=== PATIENT | female | born 1990 | race Caucasian/White ===

== ENCOUNTER 2017-07-02 08:44 | Emergency (ER) | payer BC, MEDICAID ==
--- NOTE | 2017-07-02 09:27 | EDM.PDOC ---
ED HPI GENERAL MEDICAL PROBLEM - General Chief Complaint: Abdominal Pain Stated Complaint: GOLF BALL SIZE SORE ON LEFT BACK AREA Time Seen by Provider: 07/02/17 09:21 Source of Information: Reports: Patient History Limitations: Reports: No Limitations - History of Present Illness INITIAL COMMENTS - FREE TEXT/NARRATIVE: pt arrived with a pain in the left lower abdoman with a definite prominence in the one area. Onset: Gradual, Other ( This has occured earlier in the month. 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: , 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 (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) Other OB/BYN History: full term still born first Psychiatric History: Reports: Anxiety, Depression Social & Family History - Tobacco Use Smoking Status *Q: Never Smoker Used Tobacco, but Quit: No Second Hand Smoke Exposure: No - Caffeine Use Caffeine Use: Reports: Coffee - Alcohol Use Days Per Week of Alcohol Use: 1 Number of Drinks Per Day: 2 Total Drinks Per Week: 2 - Recreational Drug Use Recreational Drug Use: No ED ROS GENERAL - Review of Systems Review Of Systems: See Below Constitutional: Reports: No Symptoms HEENT: Reports: No Symptoms Respiratory: Reports: No Symptoms Cardiovascular: Reports: No Symptoms Endocrine: Reports: No Symptoms GI/Abdominal: Reports: Abdominal Pain, Other (left lower quadrant with a prominece in the lower abdoman. ) : Reports: No Symptoms Musculoskeletal: Reports: No Symptoms Skin: Reports: No Symptoms ED EXAM, GI/ABD - Physical Exam Exam: See Below Text/Narrative:: pt has pain in her left lower abdoman and a prominence or possible mass on the left side. Exam Limited By: No Limitations General Appearance: Alert, Anxious, Mild Distress Eyes: Bilateral: Normal Appearance, EOMI Ears: Normal TMs Nose: Normal Inspection Throat/Mouth: Normal Inspection Head: Atraumatic Neck: Normal Inspection Respiratory/Chest: No Respiratory Distress Cardiovascular: Regular Rate, Rhythm GI/Abdominal Exam: Soft, Tender, Other (pt has definite tenderness in the left lower abdomman) (Female) Exam: Deferred Rectal (Female) Exam: Deferred Back Exam: Normal Inspection Extremities: Normal Inspection Neurological: Alert, Oriented, Normal Cognition Psychiatric: Normal Affect Course - Vital Signs Last Recorded V/S: Last Vital Signs Temp 37.0 C 07/02/17 09:05 Pulse 77 07/02/17 09:05 Resp 14 07/02/17 09:05 BP 109/72 07/02/17 09:05 Pulse Ox 99 07/02/17 09:05 - Orders/Labs/Meds Orders: Active Orders 24 hr Category Date Time Status Pelvis Non OB Comp [US] Stat Exams 07/02/17 09:57 Taken CULTURE URINE [] Stat Lab 07/02/17 11:00 Results Labs: Laboratory Tests 07/02/17 07/02/17 07/02/17 Range/Units 09:26 09:26 10:24 WBC 5.8 (4.5-11.0) K/uL RBC 4.32 (3.30-5.50) M/uL Hgb 12.9 (12.0-15.0) g/dL Hct 38.5 (36.0-48.0) % MCV 89 (80-98) fL MCH 30 (27-31) pg MCHC 34 (32-36) % Plt Count 308 (150-400) K/uL Neut % (Auto) 48 (36-66) % Lymph % (Auto) 33 (24-44) % [place] % (Auto) 12 H (2-6) % Eos % (Auto) 8 H (2-4) % Baso % (Auto) 1 (0-1) % Sodium 140 (140-148) mmol/L Potassium 3.7 (3.6-5.2) mmol/L Chloride 104 (100-108) mmol/L Carbon Dioxide 27 (21-32) mmol/L Anion Gap 9.3 (5.0-14.0) mmol/L BUN 20 H D (7-18) mg/dL Creatinine 0.8 (0.6-1.0) mg/dL Est Cr Clr Drug Dosing TNP Estimated GFR (MDRD) > 60 (>60) Glucose 100 (74-106) mg/dL Calcium 8.8 (8.5-10.1) mg/dL Total Bilirubin 0.5 (0.2-1.0) mg/dL AST 21 (15-37) U/L ALT 27 (12-78) U/L Alkaline Phosphatase 41 L (46-116) U/L Total Protein 7.2 (6.4-8.2) g/dL Albumin 3.9 (3.4-5.0) g/dL Globulin 3.3 (2.3-3.5) g/dL Albumin/Globulin Ratio 1.2 (1.2-2.2) Urine Color Yellow Urine Appearance Turbid Urine pH 9.0 H (4.5-8.0) Ur Specific [place] 1.015 (1.008-1.030) Urine Protein Negative (NEGATIVE) mg/dL Urine Glucose (UA) Normal (NEGATIVE) mg/dL Urine Ketones Negative (NEGATIVE) mg/dL Urine Occult Blood Negative (NEGATIVE) Urine Nitrite Negative (NEGATIVE) Urine Bilirubin Negative (NEGATIVE) Urine Urobilinogen Normal (NORMAL) mg/dL Ur Leukocyte Esterase Negative (NEGATIVE) Urine RBC 0-5 (0-5) Urine WBC 0-5 (0-5) Ur Epithelial Cells Rare Amorphous Sediment Packed Urine Bacteria Moderate Urine Mucus Not seen - Re-Assessments/Exams Free Text/Narrative Re-Assessment/Exam: 07/02/17 10:11 lab work looked normal. Her US did reveal a 1.5 cm cyst on the left side. There is no free fluid present. 07/02/17 10:27 pt was repalpated and she is very tender over the ligaments attatced to the ileum. I do not a definite mass or hernia when she coughes. She does do alot of lifiting and coiuld have pulled a muscle or ligament. Departure - Departure Time of Disposition: 10:34 Disposition: Home, Self-Care 01 Condition: Fair Clinical Impression: Abdominal wall pain, Ovarian cyst - Discharge Information Instructions: Ovarian Cyst, [id number] Referrals: PCP,None [Primary Care Provider] - Forms: ED Department Discharge Care Plan Goals: rtc if pain gets worse, avoid real heavy lifting when possible, heat to area, motrin 600mg tid for 1 week to see if there is improvement, cont to observe if the pain is worse during period time. - My Orders Last 24 Hours: My Active Orders 07/02/17 09:57 Pelvis Non OB Comp [US] Stat 07/02/17 11:00 CULTURE URINE [RM] Stat - Assessment/Plan Last 24 Hours: My Active Orders 07/02/17 09:57 Pelvis Non OB Comp [US] Stat 07/02/17 11:00 CULTURE URINE [RM] Stat
[2017-07-02 10:07] VITALS: BP 109/72
== END 2017-07-02 10:59 | disposition home or self-care (01) ==
LOC: JP.ED 08:44
DX: N83.202 Unspecified ovarian cyst, left side (principal); R10.32 Left lower quadrant pain; Z91.09 Other allergy status, other than to drugs and biological substances; Z88.8 Allergy status to other drugs, medicaments and biological substances; Z79.899 Other long term (current) drug therapy
CPT/HCPCS: 36415; 76856; 80053; 81001; 85025; 87086; 99284-25

== ENCOUNTER 2018-03-23 14:11 | Inpatient (IN) | payer MEDICAID ==
[2018-03-23] MEDS ORDERED: Sodium Chloride 0.9% 1,000 ML IV ONE (16:17)
[2018-03-23] MEDS ORDERED: Sodium Chloride 0.9% 10 ML Syringe FLUSH PRN (16:42)
[2018-03-23] MEDS ORDERED: Lactated Ringers 1,000 ML IV SCH (16:45)
[2018-03-23] MEDS ORDERED: Docusate Sodium 100 MG Cap PO PRN (19:38)
[2018-03-23] MEDS ORDERED: Ondansetron 4 MG/2 ML SDV IV PRN (19:38)
[2018-03-23] MEDS ORDERED: Acetaminophen 325 MG Tab PO PRN (19:38)
[2018-03-23] MEDS ORDERED: cefTRIAXone 1 GM in Sodium Chloride 0.9% 50 ML IV SCH (20:00)
[2018-03-23] MEDS: Sodium Chloride 0.9% 1,000 ML IV SCH (20:00)
[2018-03-23] MEDS ORDERED: Morphine 2 MG/ML Syringe IVPUSH PRN (20:08)
[2018-03-23] MEDS ORDERED: Calcium Carbonate 500 MG Tab.Chew PO PRN (20:10)
[2018-03-23] MEDS ORDERED: hydrOXYzine HCl 25 MG Tab PO SCH (21:00)
[2018-03-24] MEDS: Sodium Chloride 0.9% 1,000 ML IV SCH ×2 (03:14→16:03)
--- NOTE | 2018-03-24 08:55 | US ---
Ultrasound Abdomen Ltd CLINICAL HISTORY: Right hydronephrosis, COMPARISON: Earlier 03/24/2018. FINDINGS: The right kidney is moderately hydronephrotic. This is similar if not slightly less than th e earlier study. Right ureter is not visualized. IMPRESSION: Persistent moderate right-sided hydronephrosis. There may be a slight the decrease from e arlier exam
[2018-03-24 16:01] VITALS: BP 94/50
--- NOTE | 2018-03-24 17:00 | PCM.LDHP ---
L&D History of Present Illness - General Date of Service: 03/23/18 (Hydronephrosis) Admit Problem/Dx: Patient Status Order with Admit Dx/Problem 03/23/18 19:38 Patient Status [ADT] Routine Admission Diagnosis/Problem Admission Diagnosis/Problem Hydronephrosis of right kidney Source of Information: Patient History Limitations: Reports: No Limitations - History of Present Illness Location, : Reports: Flank Quality: Reports: Sharp, Stabbing Severity: Severe - Related Data Allergies/Adverse Reactions: Allergies Allergy/AdvReac Type Severity Reaction Status Date / Time adhesive Allergy Rash Verified 09/06/14 01:33 buspirone [From BuSpar] Allergy Hives Verified 07/02/17 08:54 Home Medications: Home Meds clonazePAM [Clonazepam] 0.5 mg PO ASDIRECTED 06/28/16 [History] FLUoxetine [PROzac] 3 tab PO DAILY 07/02/17 [History] Vit W-Ca,Fe,FA(<1 mg) [ Vitamins] 1 tab PO DAILY 03/23/18 [ History] metroNIDAZOLE [Metronidazole] 500 mg PO BID 03/23/18 [History] Past Medical History - Past Health History Medical/Surgical History: Denies Medical/Surgical History HEENT History: Reports: Impaired Vision Other HEENT History: glasses 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: , 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 (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) Other OB/BYN History: full term still born first Psychiatric History: Reports: Anxiety, Depression - Infectious Disease History Infectious Disease History: Reports: Chicken Pox - Past Surgical History HEENT Surgical History: Reports: None Social & Family History - Tobacco Use Smoking Status *Q: Never Smoker - Caffeine Use Caffeine Use: Reports: None - Recreational Drug Use Recreational Drug Use: No H&P Review of Systems - Review of Systems: Review Of Systems: See Below General: Reports: No Symptoms HEENT: Reports: No Symptoms Pulmonary: Reports: No Symptoms Cardiovascular: Reports: No Symptoms Gastrointestinal: Reports: Constipation, Nausea Genitourinary: Reports: Flank Pain Musculoskeletal: Reports: No Symptoms Skin: Reports: No Symptoms Psychiatric: Reports: No Symptoms Neurological: Reports: No Symptoms Hematologic/Lymphatic: Reports: No Symptoms Immunologic: Reports: No Symptoms L&D Exam - Exam Exam: See Below - Vital Signs Vital Signs: Last Vital Signs Temp 37.1 C 07/13/18 15:59 Pulse 84 03/24/18 15:59 Resp 16 03/24/18 15:59 BP 94/50 L 03/24/18 15:59 Pulse Ox 99 03/24/18 15:59 Weight: 59.693 kg - OB Specific Contraction Frequency (min): 0 Movement: Active Heart Tones: Present Heart Rate (FHR) Variability: Moderate (6-25 bmp) - Exam General: Alert, Oriented HEENT: PERRLA, Conjunctiva Clear, EACs Clear, EOMI, Hearing Intact, Mucosa Moist & [place], Nares Patent, Normal Nasal Septum, Posterior Pharynx Clear, Pupils Equal, Pupils Reactive, TMs Clear Neck: Supple, Trachea Midline Lungs: Clear to Auscultation, Normal Respiratory Effort Cardiovascular: Regular Rate, Regular Rhythm GI/Abdominal Exam: Normal Bowel Sounds, Soft, Non-Tender, No Organomegaly, No Distention, No Abnormal Bruit, No Mass, Pelvis Stable Rectal Exam: Normal Exam, Normal Rectal Tone Genitourinary: Normal external exam Back Exam: Full Range of Motion, CVA Tenderness (R) Extremities: Normal Inspection, Normal Range of Motion, Non-Tender, No Pedal Edema, Normal Capillary Refill Skin: Warm, Dry, Intact Neurological: Cranial Nerves Intact, Reflexes Equal Bilateral Psychiatric: Alert, Normal Affect, Normal Mood - Patient Data Lab Results Last 24 hrs: Laboratory Results - last 24 hr 03/23/18 03/23/18 03/24/18 Range/Units 17:09 19:48 11:55 WBC 6.2 (4.5-11.0) K/uL RBC 3.15 L (3.30-5.50) M/uL Hgb 9.7 L (12.0-15.0) g/dL Hct 29.4 L (36.0-48.0) % MCV 93 (80-98) fL MCH 31 (27-31) pg MCHC 33 (32-36) % Plt Count 186 (150-400) K/uL Neut % (Auto) 72 H (36-66) % Lymph % (Auto) 18 L (24-44) % [place] % (Auto) 9 H (2-6) % Eos % (Auto) 1 L (2-4) % Baso % (Auto) 0 (0-1) % Sodium 135 L (140-148) mmol/L Potassium 3.6 (3.6-5.2) mmol/L Chloride 104 (100-108) mmol/L Carbon Dioxide 24 (21-32) mmol/L Anion Gap 10.6 (5.0-14.0) mmol/L BUN 10 (7-18) mg/dL Creatinine 0.6 (0.6-1.0) mg/dL Est Cr Clr Drug Dosing 133.01 mL/min Estimated GFR (MDRD) > 60 (>60) Glucose 75 (74-106) mg/dL Calcium 8.3 L (8.5-10.1) mg/dL Urine Color Yellow Urine Appearance Clear Urine pH 8.0 (4.5-8.0) Ur Specific [place] 1.015 (1.008-1.030) Urine Protein Negative (NEGATIVE) mg/dL Urine Glucose (UA) Normal (NEGATIVE) mg/dL Urine Ketones Negative (NEGATIVE) mg/dL Urine Occult Blood Negative (NEGATIVE) Urine Nitrite Negative (NEGATIVE) Urine Bilirubin Negative (NEGATIVE) Urine Urobilinogen Normal (NORMAL) mg/dL Ur Leukocyte Esterase Negative (NEGATIVE) Urine RBC 0-5 (0-5) Urine WBC 0-5 (0-5) Ur Epithelial Cells Few Amorphous Sediment Few Urine Bacteria Not seen Urine Mucus Rare 03/24/18 Range/Units 11:55 WBC (4.5-11.0) K/uL RBC (3.30-5.50) M/uL Hgb (12.0-15.0) g/dL Hct (36.0-48.0) % MCV (80-98) fL MCH (27-31) pg MCHC (32-36) % Plt Count (150-400) K/uL Neut % (Auto) (36-66) % Lymph % (Auto) (24-44) % [place] % (Auto) (2-6) % Eos % (Auto) (2-4) % Baso % (Auto) (0-1) % Sodium 139 L (140-148) mmol/L Potassium 3.4 L (3.6-5.2) mmol/L Chloride 105 (100-108) mmol/L Carbon Dioxide 24 (21-32) mmol/L Anion Gap 13.4 (5.0-14.0) mmol/L BUN 9 (7-18) mg/dL Creatinine 0.5 L (0.6-1.0) mg/dL Est Cr Clr Drug Dosing 159.62 mL/min Estimated GFR (MDRD) > 60 (>60) Glucose 83 (74-106) mg/dL Calcium 7.8 L (8.5-10.1) mg/dL Urine Color Urine Appearance Urine pH (4.5-8.0) Ur Specific [place] (1.008-1.030) Urine Protein (NEGATIVE) mg/dL Urine Glucose (UA) (NEGATIVE) mg/dL Urine Ketones (NEGATIVE) mg/dL Urine Occult Blood (NEGATIVE) Urine Nitrite (NEGATIVE) Urine Bilirubin (NEGATIVE) Urine Urobilinogen (NORMAL) mg/dL Ur Leukocyte Esterase (NEGATIVE) Urine RBC (0-5) Urine WBC (0-5) Ur Epithelial Cells Amorphous Sediment Urine Bacteria Urine Mucus Result Diagrams: 03/24/18 11:55 03/24/18 11:55 - Problem List (1) Hydronephrosis SNOMED Code(s): 49163537 ICD Code: N13.30 - UNSPECIFIED HYDRONEPHROSIS Status: Acute Current Visit : Yes Qualifiers: Hydronephrosis type: unspecified Qualified Code(s): N13.30 - Unspecified hydronephrosis (2) SNOMED Code(s): 63375450 ICD Code: Z34.90 - ENCNTR FOR SUPRVSN OF NORMAL , UNSP, UNSP TRIMESTER Status: Acute Current Visit: Yes Qualifiers: Weeks of gestation: 27 weeks Qualified Code(s): Z3A.27 - 27 weeks gestation of (3) Nausea SNOMED Code(s): 968410839 ICD Code: R11.0 - NAUSEA Status: Acute Current Visit: Yes (4) History of stillbirth SNOMED Code(s): 189357448 ICD Code: Z87.59 - PERSONAL HISTORY OF COMP OF PREG, CHLDBRTH AND THE PUERP Status: Acute Current Visit: Yes (5) Anxiety SNOMED Code(s): 55576344 ICD Code: F41.9 - ANXIETY DISORDER, UNSPECIFIED Status: Acute Current Visit: Yes (6) Umbilical cord, marginal insertion SNOMED Code(s): 63830229 ICD Code: BPY0306 - Status: Acute Current Visit: Yes Problem List Initiated/Reviewed/Updated: Yes Orders Last 24hrs: Active Orders 24 hr Category Date Time Status Patient Status [ADT] Routine ADT 03/23/18 19:38 Active Ambulate [RC] PER UNIT ROUTINE Care 03/23/18 19:38 Active Heart Tones [RC] INTERMITTENT Care 03/23/18 19:41 Active Intake and Output [RC] QSHIFT Care 03/23/18 19:38 Active May Shower [RC] ASDIRECTED Care 03/23/18 19:38 Active Notify Provider [RC] PRN Care 03/23/18 19:38 Active Peripheral IV Care [RC] . DIRECTED Care 03/23/18 16:42 Active Strain Urine [RC] ASDIRECTED Care 03/23/18 20:06 Active Up ad [place] [RC] ASDIRECTED Care 03/23/18 19:38 Active VTE/DVT Education [RC] Click to Edit Care 03/23/18 19:44 Active Vital Signs [RC] Q4HR Care 03/23/18 19:38 Active UA W/MICROSCOPIC [URIN] Routine Lab 03/23/18 17:09 Ordered UA W/MICROSCOPIC [URIN] Routine Lab 03/24/18 12:00 Ordered Acetaminophen [Tylenol] Med 03/23/18 19:38 Active 650 mg PO Q4H PRN Calcium Carbonate [Tums] Med 03/23/18 20:10 Active 1,000 mg PO Q2H PRN Docusate Sodium [Colace] Med 03/23/18 19:38 Active 100 mg PO Q12H PRN Morphine Med 03/23/18 20:08 Active 2 mg IVPUSH Q4H PRN Ondansetron [Zofran] Med 03/23/18 19:38 Active 4 mg IV Q4H PRN Sodium Chloride 0.9% [Normal Saline] 1,000 ml Med 03/23/18 20:15 Active IV ASDIRECTED Sodium Chloride 0.9% [Saline Flush] Med 03/23/18 16:42 Active 10 ml FLUSH ASDIRECTED PRN cefTRIAXone [Rocephin] 1 gm Med 03/23/18 20:00 Active Sodium Chloride 0.9% [Normal Saline] 50 ml IV Q24H hydrOXYzine HCl [Atarax] Med 03/23/18 21:00 Active 25 - 50 mg PO BEDTIME DVT/VTE Prophylaxis Reflex [OM.PC] Routine Oth 07/12/18 19:38 Ordered Peripheral IV Insertion Adult [OM.PC] Routine Oth 03/23/18 16:42 Ordered Resuscitation Status Routine Resus Stat 03/23/18 19:38 Ordered Medication Orders Acetaminophen (Tylenol) 650 mg PO Q4H PRN PRN Reason: mild pain and fever Calcium Carbonate/Glycine (Tums) 1,000 mg PO Q2H PRN PRN Reason: Indigestion Docusate Sodium (Colace) 100 mg PO Q12H PRN PRN Reason: Constipation Last Admin: 03/24/18 03:14 Dose: 100 mg Hydroxyzine HCl (Atarax) 25 - 50 mg PO BEDTIME JAQUAN Last Admin: 03/23/18 21:02 Dose: 25 mg Sodium Chloride (Normal Saline) 1,000 mls @ 150 mls/hr IV ASDIRECTED [facility] Last Admin: 03/24/18 16:03 Dose: 150 mls/hr Infusion: 03/24/18 09:55 Dose: 150 mls/hr Admin: 03/24/18 03:14 Dose: 150 mls/hr Infusion: 03/24/18 02:41 Dose: 150 mls/hr Admin: 03/23/18 20:00 Dose: 150 mls/hr Ceftriaxone Sodium 1 gm/ (Sodium Chloride) 50 mls @ 100 mls/hr IV Q24H [facility] Last Admin: 03/23/18 21:00 Dose: 100 mls/hr Morphine Sulfate (Morphine) 2 mg IVPUSH Q4H PRN PRN Reason: Pain Ondansetron HCl (Zofran) 4 mg IV Q4H PRN PRN Reason: Nausea/Vomiting Sodium Chloride (Saline Flush) 10 ml FLUSH ASDIRECTED PRN PRN Reason: Keep Vein Open Assessment/Plan Comment:: 03/23/2018 27 yo here at 27 5/7 gestational weeks with right hydronephrosis Patient had been seen in the ER in [place] earlier in day and was discharged home Patient states on the way home the pain got worse and she came here US completed and showed severe hydronephrois Dr. Godwin notified and plan of care discussed No contractions noted FHTs category one for gestational age Plan- Monitor FHTS IV fluids NS @ 150ml/hour CBC, BMP, Creatinine, BUN, and UA to be completed Morphine 2mg every four hours as needed for pain Tylenol 650mg as needed for fever Zofran 4mg as needed for nausea Vistaril 25-50mg at HS to sleep Strain all urine Rocephin every 24hrs IV Repeat US tomorrow at noon for change Repeat all labs tomorrow for change Plan discharge 24-72 hours
--- NOTE | 2018-03-24 17:04 | PCM.PN ---
- General Info Date of Service: 03/24/18 Admission Dx/Problem (Free Text): Patient Status Order with Admit Dx/Problem 03/23/18 19:38 Patient Status [ADT] Routine Admission Diagnosis/Problem Admission Diagnosis/Problem Hydronephrosis of right kidney Functional Status: Reports: Pain Controlled - Review of Systems General: Reports: No Symptoms HEENT: Reports: No Symptoms Pulmonary: Reports: No Symptoms Cardiovascular: Reports: No Symptoms Gastrointestinal: Reports: Nausea Genitourinary: Reports: Flank Pain Musculoskeletal: Reports: No Symptoms Skin: Reports: No Symptoms Neurological: Reports: No Symptoms Psychiatric: Reports: No Symptoms - Patient Data Vitals - Most Recent: Last Vital Signs Temp 37.1 C 03/24/18 15:59 Pulse 84 03/24/18 15:59 Resp 16 03/24/18 15:59 BP 94/50 L 03/24/18 15:59 Pulse Ox 99 03/24/18 15:59 Weight - Most Recent: 59.693 kg I&O - Last 24 Hours: Intake & Output 03/24/18 03/24/18 03/24/18 06:59 14:59 22:59 Output Total 2684 823 3612 Balance -1000 -400 -2750 Lab Results Last 24 Hours: Laboratory Results - last 24 hr 03/23/18 03/23/18 03/24/18 Range/Units 17:09 19:48 11:55 WBC 6.2 (4.5-11.0) K/uL RBC 3.15 L (3.30-5.50) M/uL Hgb 9.7 L (12.0-15.0) g/dL Hct 29.4 L (36.0-48.0) % MCV 93 (80-98) fL MCH 31 (27-31) pg MCHC 33 (32-36) % Plt Count 186 (150-400) K/uL Neut % (Auto) 72 H (36-66) % Lymph % (Auto) 18 L (24-44) % [place] % (Auto) 9 H (2-6) % Eos % (Auto) 1 L (2-4) % Baso % (Auto) 0 (0-1) % Sodium 135 L (140-148) mmol/L Potassium 3.6 (3.6-5.2) mmol/L Chloride 104 (100-108) mmol/L Carbon Dioxide 24 (21-32) mmol/L Anion Gap 10.6 (5.0-14.0) mmol/L BUN 10 (7-18) mg/dL Creatinine 0.6 (0.6-1.0) mg/dL Est Cr Clr Drug Dosing 133.01 mL/min Estimated GFR (MDRD) > 60 (>60) Glucose 75 (74-106) mg/dL Calcium 8.3 L (8.5-10.1) mg/dL Urine Color Yellow Urine Appearance Clear Urine pH 8.0 (4.5-8.0) Ur Specific [place] 1.015 (1.008-1.030) Urine Protein Negative (NEGATIVE) mg/dL Urine Glucose (UA) Normal (NEGATIVE) mg/dL Urine Ketones Negative (NEGATIVE) mg/dL Urine Occult Blood Negative (NEGATIVE) Urine Nitrite Negative (NEGATIVE) Urine Bilirubin Negative (NEGATIVE) Urine Urobilinogen Normal (NORMAL) mg/dL Ur Leukocyte Esterase Negative (NEGATIVE) Urine RBC 0-5 (0-5) Urine WBC 0-5 (0-5) Ur Epithelial Cells Few Amorphous Sediment Few Urine Bacteria Not seen Urine Mucus Rare 03/24/18 Range/Units 11:55 WBC (4.5-11.0) K/uL RBC (3.30-5.50) M/uL Hgb (12.0-15.0) g/dL Hct (36.0-48.0) % MCV (80-98) fL MCH (27-31) pg MCHC (32-36) % Plt Count (150-400) K/uL Neut % (Auto) (36-66) % Lymph % (Auto) (24-44) % Clarke % (Auto) (2-6) % Eos % (Auto) (2-4) % Baso % (Auto) (0-1) % Sodium 139 L (140-148) mmol/L Potassium 3.4 L (3.6-5.2) mmol/L Chloride 105 (100-108) mmol/L Carbon Dioxide 24 (21-32) mmol/L Anion Gap 13.4 (5.0-14.0) mmol/L BUN 9 (7-18) mg/dL Creatinine 0.5 L (0.6-1.0) mg/dL Est Cr Clr Drug Dosing 159.62 mL/min Estimated GFR (MDRD) > 60 (>60) Glucose 83 (74-106) mg/dL Calcium 7.8 L (8.5-10.1) mg/dL Urine Color Urine Appearance Urine pH (4.5-8.0) Ur Specific [place] (1.008-1.030) Urine Protein (NEGATIVE) mg/dL Urine Glucose (UA) (NEGATIVE) mg/dL Urine Ketones (NEGATIVE) mg/dL Urine Occult Blood (NEGATIVE) Urine Nitrite (NEGATIVE) Urine Bilirubin (NEGATIVE) Urine Urobilinogen (NORMAL) mg/dL Ur Leukocyte Esterase (NEGATIVE) Urine RBC (0-5) Urine WBC (0-5) Ur Epithelial Cells Amorphous Sediment Urine Bacteria Urine Mucus Med Orders - Current: Current Medications Acetaminophen (Tylenol) 650 mg PO Q4H PRN PRN Reason: mild pain and fever Calcium Carbonate/Glycine (Tums) 1,000 mg PO Q2H PRN PRN Reason: Indigestion Docusate Sodium (Colace) 100 mg PO Q12H PRN PRN Reason: Constipation Last Admin: 03/24/18 03:14 Dose: 100 mg Hydroxyzine HCl (Atarax) 25 - 50 mg PO BEDTIME [facility] Last Admin: 03/23/18 21:02 Dose: 25 mg Sodium Chloride (Normal Saline) 1,000 mls @ 150 mls/hr IV ASDIRECTED [facility] Last Admin: 03/24/18 16:03 Dose: 150 mls/hr Ceftriaxone Sodium 1 gm/ (Sodium Chloride) 50 mls @ 100 mls/hr IV Q24H [facility] Last Admin: 03/23/18 21:00 Dose: 100 mls/hr Morphine Sulfate (Morphine) 2 mg IVPUSH Q4H PRN PRN Reason: Pain Ondansetron HCl (Zofran) 4 mg IV Q4H PRN PRN Reason: Nausea/Vomiting Sodium Chloride (Saline Flush) 10 ml FLUSH ASDIRECTED PRN PRN Reason: Keep Vein Open Discontinued Medications Sodium Chloride (Normal Saline) 1,000 mls @ 999 mls/hr IV .BOLUS ONE Stop: 03/23/18 17:17 Last Admin: 03/23/18 17:10 Dose: Not Given Lactated Ringer's (Ringers, Lactated) 1,000 mls @ 500 mls/hr IV BOLUS [facility] Last Admin: 03/23/18 16:45 Dose: 500 mls/hr - Exam General: Alert, Oriented HEENT: Pupils Equal, Pupils Reactive, EOMI, Mucous Membr. Moist/[place] Neck: Supple Lungs: Clear to Auscultation, Normal Respiratory Effort Cardiovascular: Regular Rate, Regular Rhythm, No Murmurs GI/Abdominal Exam: Normal Bowel Sounds, Soft, Non-Tender, No Organomegaly, No Distention, No Abnormal Bruit, No Mass, Pelvis Stable (Female) Exam: Normal External Exam, Other (gravid uterus) Back Exam: Normal Inspection, Full Range of Motion Extremities: Normal Inspection, Normal Range of Motion, Non-Tender, No Pedal Edema, Normal Capillary Refill Skin: Warm, Dry, Intact Wound/Incisions: Healing Well Neurological: No New Focal Deficit Psy/Mental Status: Alert, Normal Affect, Normal Mood - Problem List & Annotations (1) Hydronephrosis SNOMED Code(s): 51575089 Code(s): N13.30 - UNSPECIFIED HYDRONEPHROSIS Status: Acute Current Visit : Yes Qualifiers: Hydronephrosis type: unspecified Qualified Code(s): N13.30 - Unspecified hydronephrosis (2) SNOMED Code(s): 28299438 Code(s): Z34.90 - ENCNTR FOR SUPRVSN OF NORMAL , UNSP, UNSP TRIMESTER Status: Acute Current Visit: Yes Qualifiers: Weeks of gestation: 27 weeks Qualified Code(s): Z3A.27 - 27 weeks gestation of (3) Nausea SNOMED Code(s): 090856453 Code(s): R11.0 - NAUSEA Status: Acute Current Visit: Yes (4) History of stillbirth SNOMED Code(s): 385145789 Code(s): Z87.59 - PERSONAL HISTORY OF COMP OF PREG, CHLDBRTH AND THE PUERP Status: Acute Current Visit: Yes (5) Anxiety SNOMED Code(s): 43856862 Code(s): F41.9 - ANXIETY DISORDER, UNSPECIFIED Status: Acute Current Visit: Yes (6) Umbilical cord, marginal insertion SNOMED Code(s): 99321669 Code(s): IMD7349 - Status: Acute Current Visit: Yes - Problem List Review Problem List Initiated/Reviewed/Updated: Yes - My Orders Last 24 Hours: My Active Orders 03/23/18 16:42 Peripheral IV Care [RC] . DIRECTED Sodium Chloride 0.9% [Saline Flush] 10 ml FLUSH ASDIRECTED PRN Peripheral IV Insertion Adult [OM.PC] Routine 03/23/18 17:09 UA W/MICROSCOPIC [URIN] Routine 03/23/18 19:38 Patient Status [ADT] Routine Ambulate [RC] PER UNIT ROUTINE Intake and Output [RC] QSHIFT May Shower [RC] ASDIRECTED Notify Provider [RC] PRN Up ad [place] [RC] ASDIRECTED Vital Signs [RC] Q4HR Acetaminophen [Tylenol] 650 mg PO Q4H PRN Docusate Sodium [Colace] 100 mg PO Q12H PRN Ondansetron [Zofran] 4 mg IV Q4H PRN DVT/VTE Prophylaxis Reflex [OM.PC] Routine Resuscitation Status Routine 03/23/18 19:41 Heart Tones [RC] INTERMITTENT 03/23/18 19:44 VTE/DVT Education [RC] Click to Edit 03/23/18 20:00 [email or web address] [Rocephin] 1 gm Sodium Chloride 0.9% [Normal Saline] 50 ml IV Q24H 03/23/18 20:06 Strain Urine [RC] ASDIRECTED 03/23/18 20:08 Morphine 2 mg IVPUSH Q4H PRN 03/23/18 20:10 Calcium Carbonate [Tums] 1,000 mg PO Q2H PRN 03/23/18 20:15 Sodium Chloride 0.9% [Normal Saline] 1,000 ml IV ASDIRECTED 03/23/18 21:00 hydrOXYzine HCl [Atarax] 25 - 50 mg PO BEDTIME 03/24/18 12:00 UA W/MICROSCOPIC [URIN] Routine - Assessment Assessment:: 03/24/2018 Right hydronephrosis [id number] 6/7 gestational weeks Voiding and stooling Pain better today - Plan Plan:: 03/23/2018 27 yo here at 27 5/7 gestational weeks with right hydronephrosis Patient had been seen in the ER in [place] earlier in day and was discharged home Patient states on the way home the pain got worse and she came here US completed and showed severe hydronephrois Dr. Godwin notified and plan of care discussed No contractions noted FHTs category one for gestational age Plan- Monitor FHTS IV fluids NS @ 150ml/hour CBC, BMP, Creatinine, BUN, and UA to be completed Morphine 2mg every four hours as needed for pain Tylenol 650mg as needed for fever Zofran 4mg as needed for nausea Vistaril 25-50mg at HS to sleep Strain all urine Rocephin every 24hrs IV Repeat US tomorrow at noon for change Repeat all labs tomorrow for change Plan discharge 24-72 hours 45 minutes spent with patient-more than 50% of time spent on patient care, patient education, and collaboration of care. Plan- Continue IV fluids Repeat US Repeat labs Continue to strain urine May discharge home later today
== END 2018-03-24 18:05 | disposition home or self-care (01) | DRG 781 ==
LOC: JP.OBCHECK 14:11 → JP.MS 19:38
PROVIDERS: ADMIT Advanced Practice Midwife; ATTEND Advanced Practice Midwife
DX: O99.89 Other specified diseases and conditions complicating pregnancy, childbirth and the puerperium (principal); N13.30 Unspecified hydronephrosis; O69.89X0 Labor and delivery complicated by other cord complications, not applicable or unspecified; O99.342 Other mental disorders complicating pregnancy, second trimester; F41.9 Anxiety disorder, unspecified; R11.0 Nausea; Z3A.27 27 weeks gestation of pregnancy; Z87.59 Personal history of other complications of pregnancy, childbirth and the puerperium
CPT/HCPCS: 36415; 76705; 76705-26; 76815; 80048; 81001; 85025; 99211; A9270-GY; J0696; J7030; J7050; J7120

== ENCOUNTER 2018-11-07 15:59 | Emergency (ER) | payer MEDICAID ==
[2018-11-07 16:30] VITALS: BP 117/67
--- NOTE | 2018-11-07 17:00 | EDM.PDOC ---
ED HPI GENERAL MEDICAL PROBLEM - General Chief Complaint: Cardiovascular Problem Stated Complaint: HEART ISSUES Time Seen by Provider: 11/07/18 16:35 Source of Information: Reports: Patient History Limitations: Reports: No Limitations - History of Present Illness INITIAL COMMENTS - FREE TEXT/NARRATIVE: 28-year-old female who is feeling her heart skip beats on an occasional basis. She's been feeling this since July, she had another episode today and it scared her so she came in to be checked. She just had a complete physical including thyroid check and everything was fine. She has no chest pain or shortness of breath except for very briefly when the missed beat occurs she feels a tightness and shortness of breath for just a second or 2 and it's gone. Onset: Unknown/Unsure (She thinks the first one she felt was 3-4 months ago) - Related Data Allergies Allergy/AdvReac Type Severity Reaction Status Date / Time adhesive Allergy Rash Verified 09/06/14 01:33 buspirone [From BuSpar] Allergy Hives Verified 07/02/17 08:54 Home Meds: Home Meds Vit Calc,Iron,Folic [ Vitamins] 1 tab PO DAILY 03/23/18 [ History] Cholecalciferol (Vitamin D3) [Vitamin D] 1 tab PO ASDIRECTED 11/07/18 [History] Levothyroxine [Synthroid] 50 mcg PO DAILY 11/07/18 [History] Past Medical History - Past Health History Medical/Surgical History: Denies Medical/Surgical History HEENT History: Reports: Impaired Vision Other HEENT History: glasses [employer] History: Reports: , Other (See Below) Other [employer] History: full term still born first . IUD Psychiatric History: Reports: Anxiety, Depression - Infectious Disease History Infectious Disease History: Reports: Chicken Pox - Past Surgical History HEENT Surgical History: Reports: None Social & Family History - Tobacco Use Smoking Status *Q: Never Smoker - Caffeine Use Caffeine Use: Reports: Coffee - Recreational Drug Use Recreational Drug Use: No ED ROS GENERAL - Review of Systems Review Of Systems: See Below Constitutional: Denies: Fever HEENT: Reports: No Symptoms Respiratory: Reports: Shortness of Breath (. Briefly) Cardiovascular: Reports: Palpitations : Reports: No Symptoms Musculoskeletal: Reports: Other (Has been struggling with some intermittent left shoulder pain since carrying her ) Skin: Reports: No Symptoms. Denies: Rash Neurological: Reports: No Symptoms Psychiatric: Reports: Anxiety ED EXAM, GENERAL - Physical Exam Exam: See Below Exam Limited By: No Limitations General Appearance: Alert, No Apparent Distress Respiratory/Chest: No Respiratory Distress, Lungs Clear Cardiovascular: Regular Rate, Rhythm Extremities: Normal Inspection. No: Pedal Edema Neurological: Alert, Oriented Psychiatric: Anxious Skin Exam: Warm, Dry Course - Vital Signs Last Recorded V/S: Last Vital Signs Temp 98.2 F 11/07/18 16:21 Pulse 76 11/07/18 16:30 Resp 16 11/07/18 16:30 BP 117/67 11/07/18 16:30 Pulse Ox 99 11/07/18 16:30 - Re-Assessments/Exams Free Text/Narrative Re-Assessment/Exam: 11/07/18 16:58 Explained to the patient that this is very likely a PAC or PVC. A Holter monitor would be required to document the abnormality. She was on a monitor for a full 30 minutes here in the emergency room and had no abnormalities. She was given information on PVCs, and will decide if she wants to pursue this any further. Departure - Departure Time of Disposition: 17:10 Disposition: Home, Self-Care 01 Condition: Good Clinical Impression: Palpitations Instructions: Premature Ventricular Contraction Referrals: Arianne Stokes CNM [Primary Care Provider] - Forms: ED Department Discharge Care Plan Goals: Continue activity as tolerated, and consider a Holter monitor if symptoms persist and are concerning.
== END 2018-11-07 17:10 | disposition home or self-care (01) ==
LOC: JP.ED 15:59
DX: R00.2 Palpitations (principal); Z79.899 Other long term (current) drug therapy; Z91.09 Other allergy status, other than to drugs and biological substances; Z88.8 Allergy status to other drugs, medicaments and biological substances
CPT/HCPCS: 99284